=== PATIENT | female | born 1975 | race Caucasian/White ===

== ENCOUNTER 2020-05-08 12:22 | Emergency (ER) | payer OTHER ==
[~2020-05-08] VITALS: Ht 165.1 cm; Wt 61.2 kg
[2020-05-08 12:44] LABS: ABSOLUTE BASOPHILS 0.1 thou/uL (0.0-0.2); ABSOLUTE EOSINOPHILS 0.2 thou/uL (0.0-0.7); ABSOLUTE MONOCYTES 0.5 thou/uL (0.0-1.2); ABSOLUTE NEUTROPHILS 3.6 thou/uL (1.6-8.1); BASOPHILS 1.4 %; EOSINOPHILS 2.7 %; HEMATOCRIT 34.2 % (37.0-47.0); HEMOGLOBIN 11.1 gm/dL (12.0-15.0); LYMPHOCYTES 47.7 %; MCH 27.1 pg (26.0-34.0); MCHC 32.5 g/dL (28.0-37.0); MCV 83.4 fL (80.0-100.0); MONOCYTES 5.9 %; NUCLEATED RBCS 0 /100WBC; PLATELET COUNT* 339 thou/uL (150-400); POLYS 42.3 %; RDW-CV 15.6 % (10.5-14.5); WBC 8.4 thou/uL (4.0-11.0)
[2020-05-08 12:53] LABS: CREATININE 0.8 mg/dL (0.6-1.3); POTASSIUM 3.1 mmol/L (3.5-5.1)
[2020-05-08 12:55] LABS: APTT 20.2 Seconds (25.0-31.3); PROTIME 10.9 Seconds (9.20-11.50)
[2020-05-08 13:04] LABS: ALBUMIN 3.2 g/dL (3.4-5.0); TOTAL BILIRUBIN 0.2 mg/dL (<0.1-1.0); TOTAL PROTEIN 6.8 g/dL (6.4-8.2)
[2020-05-08 13:39] LABS: URINE BILIRUBIN NEGATIVE (Negative); URINE BLOOD NEGATIVE (Negative); URINE CLARITY CLEAR; URINE COLOR YELLOW; URINE GLUCOSE-RANDOM NEGATIVE (Negative); URINE KETONES NEGATIVE (Negative); URINE LEUKOCYTES-REFLEX NEGATIVE (Negative); URINE NITRITE-REFLEX NEGATIVE (Negative); URINE PROTEIN NEGATIVE (Negative); URINE UROBILINOGEN 0.2 E.U./dl (0.2-1.0)
[2020-05-08 13:45] LABS: AMP/METHAMP Negative (Negative); BARBITURATES Negative (Negative); BENZODIAZEPINES Negative (Negative); COCAINE Negative (Negative); METHADONE Negative (Negative); OPIATES Negative (Negative); PCP Negative (Negative); THC POSITIVE (Negative)
[2020-05-08 14:08] VITALS: BP 137/82
--- NOTE | 2020-05-09 15:10 | EKG ---
[place] [address] ELECTROCARDIOGRAM REPORT Name: VERONIKA DOMINGUEZ Room: [facility]#: [id number] Admission: 05/08/20 Attend Phys: Discharge: 05/08/20 Date of : 75 Date of Service: 05/08/20 1319 Report #: [id number] THIS REPORT FOR: //name// [facility] ED Test Date: 2020-05-08 Test Time: 13:19:57 Pat Name: VERONIKA JIMENEZ Department: Room: Gender: F Barrel Marker: BOB : 1975 Requested By: Ananth Gutiérrez Order Number: [id number] MD: Dane Marquez Measurements Intervals [place] Rate: 85 P: 70 [place]: 190 QRS: 49 QRSD: 68 T: 53 QT: 367 QTc: 437 Interpretive Statements Sinus rhythm Probable left atrial enlargement Borderline T abnormalities, anterior leads No previous ECG available for comparison Electronically Signed On 05-09-2020 15:09:54 [employer]OCIATE SPA DIRECTOR by Dane Marquez [email or web address] <ELECTRONICALLY SIGNED> By: Dane Marquez MD, [facility] 05/09/20 1509 1319 1319 Dane Marquez MD, FACC /EPI
== END 2020-05-08 14:09 | disposition home or self-care (01) ==
LOC: M.ERS 12:22
PROVIDERS: Family Medicine
DX: R53.1 Weakness (principal); R42 Dizziness and giddiness; R41.82 Altered mental status, unspecified; Z20.828 Contact with and (suspected) exposure to other viral communicable diseases